=== PATIENT | female | born 1985 | race African-American/Black ===

== ENCOUNTER 2016-09-13 10:41 | Emergency (ER) | payer SELFPAY ==
[~2016-09-13] VITALS: Ht 180.3 cm; Wt 140.6 kg
[2016-09-13] MEDS ORDERED: PREMARIN0.625 M1 PO ×2 (10:58→11:57)
[2016-09-13] MEDS ORDERED: PROMETRIUM200 MG PO ×2 (10:59→11:57)
[2016-09-13] MEDS ORDERED: [UNRECOGNIZED DRUG - OTHER] (10:59)
[2016-09-13] MEDS ORDERED: NOVOLOG 70/30 M10 ML SQ (11:01)
[2016-09-13] MEDS ORDERED: LANTUS100 U/ML SQ (11:02)
[2016-09-13 11:28] LABS: BASO % 0.5 % (0.0-1.0); EOS # 0.1 10*3/uL (0.0-0.4); HEMATOCRIT 44.2 % (37.0-47.0); HEMOGLOBIN 15.3 g/dl (12.0-16.0); LYMPH # 3.6 10*3/uL (1.3-4.4); LYMPH % 42.1 % (27.0-41.0); MEAN CORPUSCULAR HGB 29.4 pg (27.0-31.0); MEAN CORPUSCULAR HGB CONC 34.6 g/dl (33.0-37.0); MEAN PLATELET VOLUME 10.5 fl (9.6-12.3); MONO # 0.6 10*3/uL (0.1-1.0); NEUT # 4.2 10*3/uL (2.3-7.9); NEUT % 49.3 % (47.0-73.0); PLATELET COUNT AUTOMATED 221 10*3/uL (130-400); RED CELL DISTRI WIDTH 12.6 % (0-14.5); WHITE BLOOD COUNT 8.6 10*3/uL (4.8-10.8)
[2016-09-13 11:45] LABS: ALBUMIN 3.7 gm/dl (3.1-4.5); ALKALINE PHOSPHATASE 72 U/L (45-117); BILIRUBIN, TOTAL 0.6 mg/dl (0.2-1.0); BUN 9 mg/dl (7-24); CARBON DIOXIDE 25 mmol/L (21-32); CHLORIDE 102 mmol/L (98-107); EST GLOM FILT AFRICAN AMERICAN > 60 ml/min; GLUCOSE 322 mg/dL (65-99); POTASSIUM 4.1 mmol/L (3.5-5.1); SGOT/AST 12 IU/L (3-35); SGPT/ALT 28 U/L (12-78); SODIUM 136 mmol/L (136-145); TOTAL PROTEIN 7.6 gm/dL (6.4-8.2)
[2016-09-13] MEDS ORDERED: LANTUS100 U/ML SC (11:57)
[2016-09-13] MEDS ORDERED: NOVOLOG MI100 UNIT/2 SQ (11:57)
[2016-09-13] MEDS ORDERED: CASODEX50 MG PO (12:02)
== END 2016-09-13 12:03 | disposition home or self-care (01) ==
LOC: ED 10:41 → EDSEX 10:42 → ED 10:42
PROVIDERS: Nurse Practitioner Family
DX: R73.9 Hyperglycemia, unspecified (principal); R03.0 Elevated blood-pressure reading, without diagnosis of hypertension; Z79.899 Other long term (current) drug therapy